=== PATIENT | male | born 1960 | race Caucasian/White ===

== ENCOUNTER 2021-05-16 12:21 | Emergency (ER) | payer OTHER ==
[~2021-05-16] VITALS: Ht 182.9 cm; Wt 90.7 kg
[2021-05-16] MEDS ORDERED: SODIUM CHLORIDE 0.9% 1000ML 1,000 ML IV STA (12:34)
[2021-05-16] MEDS ORDERED: SODIUM CHLORIDE 0.9% 1000ML 1,000 ML ONE (13:14)
[2021-05-16] MEDS ORDERED: PROBIOTIC & AC1 EACH PO (13:21)
[2021-05-16] MEDS ORDERED: IPRAT-ALBUT 0.5-3 ML NEB (13:21)
[2021-05-16] MEDS ORDERED: PROVENTIL HFA6.7 GM INH (13:21)
== END 2021-05-16 13:35 | disposition home or self-care (01) ==
LOC: FSED 12:24
DX: R19.7 Diarrhea, unspecified (principal); K75.9 Inflammatory liver disease, unspecified; K76.0 Fatty (change of) liver, not elsewhere classified; J44.9 Chronic obstructive pulmonary disease, unspecified; I10 Essential (primary) hypertension; E11.9 Type 2 diabetes mellitus without complications; E78.5 Hyperlipidemia, unspecified; Z86.73 Personal history of transient ischemic attack (TIA), and cerebral infarction without residual deficits; F17.210 Nicotine dependence, cigarettes, uncomplicated
CPT/HCPCS: 80053; 81003; 85025; 99284; J7030